=== PATIENT | female | born 1980 | race Caucasian/White ===

== ENCOUNTER 2017-05-17 05:42 | Outpatient (CLI) | payer OTHER ==
[~2017-05-17] VITALS: Ht 162.6 cm; Wt 81.6 kg
[2017-05-17] MEDS ORDERED: FAMO20TA5 PO (11:19)
[2017-05-17] MEDS ORDERED: LEVO25TA5 PO (11:19)
[2017-05-17] MEDS ORDERED: MULT-884 PO (11:19)
== END 2017-05-17 11:25 ==
LOC: PREOP 05:42
PROVIDERS: ATTEND Surgery
DX: Z01.818 Encounter for other preprocedural examination (principal); K81.9 Cholecystitis, unspecified

== ENCOUNTER 2018-10-01 06:08 | Outpatient (CLI) | payer OTHER ==
[~2018-10-01] VITALS: Ht 162.6 cm; Wt 90.7 kg
[~2018-10-01 06:08] MED LIST: ACHD5005 PO; DOCU-143 PO; FAMO20TA5 PO; LEVO25TA5 PO; MULT-884 PO
== END 2018-10-01 12:55 ==
LOC: PREOP 06:08
PROVIDERS: ATTEND Surgery
DX: Z01.818 Encounter for other preprocedural examination (principal); K21.9 Gastro-esophageal reflux disease without esophagitis

== ENCOUNTER → 2018-10-03 | Day surgery (SDC) | payer OTHER ==
[2018-10-03] VITALS (10 sets, daily range): BP systolic 107–128; BP diastolic 58–78
[~2018-10-03] VITALS: Ht 162.6 cm; Wt 90.7 kg
[~2018-10-03] MED LIST changes: +ACETAMINOPHEN 325 MG TABLET PO PRN; +HURRICAINE EXT TUBE (BENZOCAINE) ONE; +HURRICAINE EXT TUBE (BENZOCAINE) XX PRN; +HYDROcodone/APAP 5 MG/325 MG (LORTAB) TAB PO PRN; +LIDOCAINE JELLY 2% 6 ML SYRINGE MM PRN; +LIDOCAINE JELLY 2% 6 ML SYRINGE ONE; +MIDAZOLAM 2 MG/2 ML (VERSED) VIAL IVP ONE; +MIDAZOLAM 2 MG/2 ML (VERSED) VIAL ONE; +NS IV 500 ML 500 ML IV PRN; +NS IV 500 ML 500 ML ONE; +ONDANSETRON 4 MG/2 ML (SDV) Z0FRAN IVP PRN; +ONDANSETRON 4 MG/2 ML (SDV) Z0FRAN ONE; +fentaNYL INJECTION 100 MCG/2 ML AMP IVP ONE; +fentaNYL INJECTION 100 MCG/2 ML AMP ONE; +morphine INJ 10 MG/ML 1ML (SYR OR VIAL) IVP PRN
--- NOTE | 2018-10-03 10:11 | Progress Note-Pre Operative ---
Pre-Operative Progress Note H&P Reviewed The H&P was reviewed, patient examined and no changes noted. Date Seen by Provider: Oct 03, 2018 Time Seen by Provider: 10:00 Date H&P Reviewed: Oct 03, 2018 Time H&P Reviewed: 10:00 Pre-Operative Diagnosis: SUSANNE COOLEY MD Oct 03, 2018 10:11
--- NOTE | 2018-10-03 10:11 | Conscious Sedation/ASA ---
Conscious Sedation Pre-Proced Time 10:00 ASA Score 2 For ASA 3 and 4: Consider anesthesia and medical clearance. Also, for patients with a history of failed moderate sedation consider anesthesia. Airway Lungs Heart ASA score ASA 1: a normal healthy patient ASA 2: a patient with a mild systemic disease (mid diabetes, controlled hypertension, obesity ASA 3: a patient with a severe systemic disease that limits activity (angina, COPD, prior Myocardial infarction) ASA 4: a patient with an incapacitating disease that is a constant threat to life (CHF, renal failure) ASA 5: a moribund patient not expected to survive 24 hrs. (ruptured aneurysm) ASA 6: a declared brain- patient whose organs are being harvested. For emergent operations, add the letter E after the classification Mallampati Classification Grade 2 Sedation Plan Analgesia, Amnesia, Plan communicated to team members, Discussed options with patient/fam, Discussed risks with patient/fam The patient is an appropriate candidate to undergo the planned procedure, sedation, and anesthesia. The patient immediately re-assessed prior to indication. SUSANNE SIEGEL MD Oct 03, 2018 10:11
--- NOTE | 2018-10-03 10:13 | Discharge Inst-Surgical ---
D/C Lap Instructions-CHRISTAL Follow Up Activity as tolerated High Fiber Diet 25g or more per day Avoid Alcohol, Caffeine, Spicy [place] and Acid foods. Drink 64 fluid oz or more of fluids per day. Symptoms to Report: Fever over 101 degree F, Nausea/Vomiting If any problems/questions: Contact your physician or go to Emergency Room SUSANNE SIEGEL MD Oct 03, 2018 10:13
--- NOTE | 2018-10-03 11:43 | Progress Note-Post Operative ---
Post-Operative Progess Note Surgeon (s)/Load Dispatcher (s) Surgeon SUSANNE SIEGEL MD Load Dispatcher: none Pre-Operative Diagnosis GERD Post-Operative Diagnosis reflux esophagitis(stage 2), moderate HH(3cm), mild gastritis. Procedure & Operative Findings Date of Procedure 10/03/18 Procedure Performed/Findings EGD with bx. Anesthesia Type cs Estimated Blood Loss Estimated blood loss (mL): minimial Specimens/Packing Specimens Removed ge jxn, antrum SUSANNE SIEGEL MD Oct 03, 2018 11:43
--- NOTE | 2018-10-03 15:55 | OPERATIVE REPORT ---
DATE OF SERVICE: 10/03/2018 ATTENDING DIRECTOR OF ELEMENTARY EDUCATION: [place], [place]. PREOPERATIVE DIAGNOSIS: Gastroesophageal reflux disease, epigastric pain. POSTOPERATIVE DIAGNOSIS: Reflux esophagitis stage II, moderate size hiatal hernia approximately 3 cm in size, mild gastritis. PROCEDURE: EGD with biopsy. SURGEON: Susanne Siegel MD ANESTHESIA: Conscious sedation. ESTIMATED BLOOD LOSS: Minimal. FINDINGS: Moderate sized hiatal hernia, which is the most likely cause of her symptoms. DISPOSITION: The patient tolerated the procedure well. INDICATIONS: The patient is a 37-year-old female, who has had epigastric pain and worsening gastroesophageal reflux disease. She states that her symptoms have worsened over the past year and has had a dull ache in the epigastric region and the reflux has also worsened. She also does report abdominal bloating and nausea and she did have an episode of nausea and vomiting as well as hematemesis at one time. She was started on Prilosec; however, states that this did not help and then she switched to famotidine b.i.d., which she feels did help more. DESCRIPTION OF PROCEDURE: The patient was brought to the endoscopy suite, laid in the left lateral decubitus position. After adequate IV pain and sedative medications and conscious sedation anesthesia, the mouthpiece was applied. The endoscope was placed in the mouth, visualizing the pharynx and hypopharyngeal region. Vocal cords, epiglottis and vallecula were identified and appeared to be normal. The endoscope was then gently intubated. Esophageal opening and esophagus was insufflated. The endoscope was then advanced to the first, second and third portion of the esophagus. At the level of the GE junction, a reflux esophagitis stage II identified. There were no ulcers or strictures identified in this region. A biopsy was taken with forceps with visualization of good hemostasis. The endoscope was then advanced into the stomach and endoscope was retroflexed, visualizing a moderate sized hiatal hernia, approximately 3 cm in size. This is the most likely etiology of her symptoms. Mild gastritis was noted of the stomach antrum. There were no formal ulcerations, polyps or any neoplasms. A biopsy was taken of the antrum to rule out H. pylori with visualization of good hemostasis. The endoscope was then advanced to the pylorus and the first and second portion of the duodenum, which appeared normal with no distal obstructions. The endoscope was then slowly withdrawn while taking a second look and suctioning of residual air with no additional findings. The patient tolerated the procedure well. We feel that the most likely etiology of her symptoms with the epigastric pressure sensation, crampy pain, intermittent nausea and vomiting as well as worsening gastroesophageal reflux disease is due to the hiatal hernia. We will recommend initially the necessary lifestyle and diet accommodation including small and more frequent meals, avoidance of eating at night as well as head elevation while lying supine. If famotidine b.i.d. has helped, we will have her continue with that as well. We will also recommend avoidance of caffeinated beverages, spicy, greasy and acidic foods as well as any form of diet and exercise regimen for sustained weight loss. If she does continue to be symptomatic despite maximum medical therapy, at this time her body mass index is 36.4 and we would recommend a hiatal hernia repair; however, add some form of bariatric surgical procedure simultaneously. We will continue to monitor her progress. Job ID: [id number] DocumentID: [id number] Dictated Date: 10/03/2018 11:38:33 Book Repairer Date: 10/03/2018 15:53:30 Dictated By: SUSANNE SIEGEL MD
== END ==
LOC: ENDO 09:12
PROVIDERS: ATTEND Surgery
DX: K21.0 Gastro-esophageal reflux disease with esophagitis (principal); K29.50 Unspecified chronic gastritis without bleeding; K44.9 Diaphragmatic hernia without obstruction or gangrene; E03.9 Hypothyroidism, unspecified; Z90.89 Acquired absence of other organs; Z79.899 Other long term (current) drug therapy; Z83.3 Family history of diabetes mellitus; Z82.49 Family history of ischemic heart disease and other diseases of the circulatory system; Z80.0 Family history of malignant neoplasm of digestive organs; Z82.3 Family history of stroke
CPT/HCPCS: 88305; 88342